=== PATIENT | female | born 1985 | race Caucasian/White ===

== ENCOUNTER 2018-04-11 08:43 | Emergency (ER) | payer OTHER, SELFPAY ==
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
[2018-04-11 09:15] VITALS: BP 120/75; PULSE 80; RESP 16; TEMP 36.9; O2SAT 99
[2018-04-11 10:10] VITALS: BP 115/73; PULSE 64; RESP 18; O2SAT 99
[2018-04-11 10:23] VITALS: BP 115/73; PULSE 64; RESP 18; O2SAT 99
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
== END 2018-04-11 10:29 | disposition home or self-care (01) ==
PROVIDERS: Emergency Provider Emergency Medicine
DX: Z71.1 Person with feared health complaint in whom no diagnosis is made (principal); V49.40XA Driver injured in collision with unspecified motor vehicles in traffic accident, initial encounter
CPT/HCPCS: 99282; 99283